=== PATIENT | female | born 1960 | race Two or more races ===

== ENCOUNTER 2018-11-08 22:31 | Inpatient (IN) | payer OTHER, MEDICAID ==
[~2018-11-08] VITALS: Ht 170.2 cm; Wt 76.7 kg
[2018-11-08] MEDS ORDERED: SODIUM CHLORIDE 0.9% 1,000 ML IV ONE (23:00)
[2018-11-09] LABS: BASOPHILS % 0.8 % (0.0-2.0); EOSINOPHILS % 2.2 % (0.0-5.0); HEMATOCRIT. 41.7 % (36.0-48.0); HEMOGLOBIN. 14.5 g/dL (12.0-16.0); LYMPHOCYTES % 44.8 % (20.0-50.0); MEAN CORPUSCULAR HEMOGLOBIN 32.5 pg (28.0-32.0); MEAN CORPUSCULAR VOLUME 93.2 fL (81.0-99.0); MEAN PLATELET VOLUME 9.9 fl (7.4-10.4); MONOCYTES % 5.7 % (2.0-8.0); NEUTROPHILS % 46.5 % (40.0-76.0); PLATELET 130 x1000/uL (130-400); RED BLOOD CELL COUNT 4.47 mill/uL (4.2-5.4); RED CELL DISTRIBUTION WIDTH 12.8 % (11.6-14.6)
[2018-11-09 00:04] LABS: CHLORIDE 105 mEq/L (98-107)
[2018-11-09 00:15] LABS: BETA HYDROXYBUTYRATE 0.1 mMol/L (0.0-0.3)
[2018-11-09 00:16] LABS: CLARITY URINE CLEAR (CLEAR); COLOR URINE YELLOW (YELLOW); KETONES URINE NEGATIVE (NEGATIVE); LEUKOCYTE ESTERASE URINE NEGATIVE (NEGATIVE); NITRITE URINE NEGATIVE (NEGATIVE); OCCULT BLOOD URINE NEGATIVE (NEGATIVE); PROTEIN URINE NEGATIVE (NEGATIVE); SPECIFIC GRAVITY URINE 1.033 (1.005-1.030)
[2018-11-09 00:25] LABS: *AMPHETAMINES SCREEN URINE NEGATIVE (NEGATIVE); *BARBITURATES SCREEN URINE NEGATIVE (NEGATIVE); *BENZODIAZEPINES SCREEN URINE NEGATIVE (NEGATIVE); *COCAINE SCREEN URINE NEGATIVE (NEGATIVE); CANNABINOID URINE SCREEN NEGATIVE (NEGATIVE); OPIATES URINE SCREEN NEGATIVE (NEGATIVE)
[2018-11-09 00:26] LABS: METHADONE URINE SCREEN NEGATIVE (NEGATIVE); PHENCYCLIDINE URINE SCREEN NEGATIVE (NEGATIVE)
[2018-11-09] MEDS ORDERED: POTASSIUM CHLORIDE 20MEQ TABLET SR PO SCH (02:00)
[2018-11-09] MEDS ORDERED: ONDANSETRON HCL 4MG/2ML INJ IV PRN (09:00)
[2018-11-09] MEDS ORDERED: MAGNESIUM/ALUMINUM HYDROXIDE/SIMETHICONE 30ML UDC PO PRN (09:00)
[2018-11-09] MEDS ORDERED: CLONIDINE 0.1MG TABLET PO PRN (09:00)
[2018-11-09] MEDS ORDERED: IPRATROPIUM/ALBUTEROL 0.5-3(2.5)MG/3ML NEB HHN PRN (09:00)
[2018-11-09] MEDS ORDERED: GUAIFENESIN 200MG/10ML SUGAR FREE UDC PO PRN (09:00)
[2018-11-09] MEDS ORDERED: DOCUSATE SODIUM 100MG CAPSULE PO PRN (09:00)
[2018-11-09] MEDS ORDERED: DIPHENHYDRAMINE 50MG/ML VIAL IV PRN (09:00)
[2018-11-09] MEDS: HYDROCODONE/ACETAMINOPHEN 5/325MG TABLET PO PRN (10:55)
[2018-11-09 11:03] VITALS: BP 123/63
[2018-11-09] MEDS ORDERED: DEXTROSE 50% WATER 50ML SYRINGE IV PRN (12:00)
[2018-11-09] MEDS: AMLODIPINE 5MG TABLET PO SCH ×2 (12:03→20:53)
[2018-11-09] MEDS: ENOXAPARIN 40MG/0.4ML SYR SUBCUT SCH (12:03)
[2018-11-09] MEDS: INSULIN LISPRO 100 UNITS/ML SUBCUT SCH ×3 (12:40→20:56)
[2018-11-09] MEDS: BLOOD SUGAR DIAGNOSTIC STRIP TEST SCH ×3 (12:58→20:56)
[2018-11-09 13:23] LABS: PHOSPHORUS 2.4 mg/dL (2.5-4.9)
[2018-11-09 15:12] VITALS: BP 123/63
[2018-11-09] MEDS ORDERED: PNEUMOCOCCAL 23-VAL P-SAC VAC 0.5 ML IM ONE (15:30)
[2018-11-09 16:00] VITALS: BP 118/73
[2018-11-09] MEDS: ACETAMINOPHEN 325MG TABLET PO PRN (16:14)
[2018-11-09 18:40] LABS: CREATINE KINASE 37 IU/L (26-192); CREATINE KINASE MB FRACTION < 1.0 ng/mL (0.5-3.6)
[2018-11-09 20:00] VITALS: BP 128/70
[2018-11-10] VITALS: BP 105/66
[2018-11-10 00:21] LABS: CREATINE KINASE 34 IU/L (26-192); CREATINE KINASE MB FRACTION < 1.0 ng/mL (0.5-3.6)
[2018-11-10 04:00] VITALS: BP 105/58
[2018-11-10] MEDS: ACETAMINOPHEN 325MG TABLET PO PRN (04:44)
[2018-11-10 06:19] LABS: CHLORIDE 103 mEq/L (98-107)
[2018-11-10 06:24] LABS: BASOPHILS % 0.5 % (0.0-2.0); EOSINOPHILS % 2.5 % (0.0-5.0); HEMOGLOBIN. 16.1 g/dL (12.0-16.0); LYMPHOCYTES % 31.1 % (20.0-50.0); MEAN CORPUSCULAR HEMOGLOBIN 32.6 pg (28.0-32.0); MEAN CORPUSCULAR VOLUME 93.1 fL (81.0-99.0); MEAN PLATELET VOLUME 10.8 fl (7.4-10.4); MONOCYTES % 4.3 % (2.0-8.0); NEUTROPHILS % 61.6 % (40.0-76.0); PLATELET 151 x1000/uL (130-400); RED BLOOD CELL COUNT 4.95 mill/uL (4.2-5.4); RED CELL DISTRIBUTION WIDTH 12.9 % (11.6-14.6)
[2018-11-10] MEDS: INSULIN LISPRO 100 UNITS/ML SUBCUT SCH ×5 (06:36→21:39)
[2018-11-10] MEDS: BLOOD SUGAR DIAGNOSTIC STRIP TEST SCH ×4 (06:37→21:40)
[2018-11-10 06:54] LABS: HDL CHOLESTEROL 42 mg/dL (40-59)
[2018-11-10 06:59] LABS: LDL CHOLESTEROL 177 mg/dL (5-100)
[2018-11-10 08:00] VITALS: BP 115/56
[2018-11-10] MEDS: AMLODIPINE 5MG TABLET PO SCH ×2 (09:26→21:22)
[2018-11-10] MEDS: ENOXAPARIN 40MG/0.4ML SYR SUBCUT SCH (09:27)
[2018-11-10 12:00] VITALS: BP 127/77
[2018-11-10 16:00] VITALS: BP 115/62
[2018-11-10] MEDS: HYDROCODONE/ACETAMINOPHEN 5/325MG TABLET PO PRN (17:14)
[2018-11-10] MEDS: GLIMEPIRIDE 1MG TABLET PO SCH (19:28)
[2018-11-10 20:00] VITALS: BP 113/55
[2018-11-10] MEDS ORDERED: ATORVASTATIN CALCIUM 20MG TABLET PO SCH (21:00)
[2018-11-10] MEDS ORDERED: INSULIN GLARGINE UD 100 UNITS/ML SYR SUBCUT SCH (22:00)
[2018-11-11] VITALS: BP 105/59
[2018-11-11 04:00] VITALS: BP 117/65
[2018-11-11 05:57] LABS: CHLORIDE 104 mEq/L (98-107)
[2018-11-11] MEDS: ACETAMINOPHEN 325MG TABLET PO PRN (06:13)
[2018-11-11 06:28] LABS: BASOPHILS % 0.5 % (0.0-2.0); EOSINOPHILS % 3.1 % (0.0-5.0); HEMATOCRIT. 42.3 % (36.0-48.0); HEMOGLOBIN. 14.7 g/dL (12.0-16.0); LYMPHOCYTES % 37.7 % (20.0-50.0); MEAN CORPUSCULAR HEMOGLOBIN 32.6 pg (28.0-32.0); MEAN CORPUSCULAR VOLUME 93.8 fL (81.0-99.0); MEAN PLATELET VOLUME 10.5 fl (7.4-10.4); MONOCYTES % 6.3 % (2.0-8.0); NEUTROPHILS % 52.4 % (40.0-76.0); PLATELET 139 x1000/uL (130-400); RED BLOOD CELL COUNT 4.51 mill/uL (4.2-5.4)
[2018-11-11] MEDS: INSULIN LISPRO 100 UNITS/ML SUBCUT SCH ×6 (06:43→16:40)
[2018-11-11] MEDS: BLOOD SUGAR DIAGNOSTIC STRIP TEST SCH ×3 (06:43→16:22)
[2018-11-11 08:00] VITALS: BP 111/60
[2018-11-11] MEDS: METFORMIN HCL 500MG TABLET PO SCH ×2 (08:39→16:40)
[2018-11-11] MEDS: GLIMEPIRIDE 1MG TABLET PO SCH ×2 (08:39→16:40)
[2018-11-11] MEDS: AMLODIPINE 5MG TABLET PO SCH (08:40)
[2018-11-11] MEDS: ENOXAPARIN 40MG/0.4ML SYR SUBCUT SCH (08:40)
[2018-11-11 11:55] VITALS: BP 104/47
[2018-11-11 13:19] VITALS: BP 104/47
[2018-11-11 15:55] VITALS: BP 101/61
== END 2018-11-11 18:43 | disposition home or self-care (01) | DRG 204 ==
LOC: ER 22:31 → 8WST 11-09 02:47 → EDBEDREQTM 11-09 02:59 → EDBEDREQ 11-09 02:59 → ENRESERV 11-09 07:05
PROVIDERS: ADMIT Internal Medicine; ATTEND Internal Medicine
DX: R55 Syncope and collapse (principal); E11.65 Type 2 diabetes mellitus with hyperglycemia; K75.81 Nonalcoholic steatohepatitis (NASH); I16.0 Hypertensive urgency; E87.6 Hypokalemia; E83.39 Other disorders of phosphorus metabolism; I10 Essential (primary) hypertension; R74.0 Nonspecific elevation of levels of transaminase and lactic acid dehydrogenase [LDH]; E78.5 Hyperlipidemia, unspecified; Z83.3 Family history of diabetes mellitus
CPT/HCPCS: 36415; 71045; 76700; 80048; 80061; 80305; 81003; 82010; 82550; 82553; 82962; 83036; 83605; 83735; 84100; 84443; 84484; 85379; 93005; 93306; 93880; 93970; 99285; J1200; J1650; J1815; J2405